=== PATIENT | male | born 1965 | race Caucasian/White ===

== ENCOUNTER → 2020-03-10 | Outpatient (CLI) | payer OTHER ==
[~2020-03-10] MED LIST: OXYC1TAB19 PO; SILD50TA PO; TAMS0.4C97 PO
== END ==
LOC: LAB 13:29
PROVIDERS: ATTEND Orthopaedic Surgery
DX: Z01.812 Encounter for preprocedural laboratory examination (principal); Z20.828 Contact with and (suspected) exposure to other viral communicable diseases
CPT/HCPCS: U0003

== ENCOUNTER 2020-03-14 06:51 | Day surgery (SDC) | payer OTHER ==
[~2020-03-14] VITALS: Ht 188 cm; Wt 106.0 kg
[~2020-03-14 06:51] MED LIST changes: -OXYC1TAB19 PO
[2020-03-14] MEDS ORDERED: MORPHINE SULFATE 2 MG/ML VIAL. IV PRN (07:00)
[2020-03-14] MEDS ORDERED: HYDROmorphone 2 MG/ML VIAL IV PRN (07:00)
[2020-03-14] MEDS ORDERED: PROCHLORPERAZINE 10 MG/2 ML VIAL. IV PRN (07:00)
[2020-03-14] MEDS ORDERED: ONDANSETRON PF 4 MG/2 ML VIAL. IV PRN (07:00)
[2020-03-14] MEDS ORDERED: LIDOCAINE 1% PF 2 ML VIAL. ID PRN (07:00)
[2020-03-14] MEDS ORDERED: fentaNYL PF VIAL 100 MCG/2 ML VIAL IV PRN ×2 (07:00)
[2020-03-14] MEDS ORDERED: MIDAZOLAM HCL/PF 2 MG/2 ML VIAL. ONE (07:06)
[2020-03-14] MEDS ORDERED: ROPIVacaine 0.5% PF 20 ML VIAL. ONE (07:07)
[2020-03-14] MEDS ORDERED: EPINEPHrine VIAL 30 MG/30 ML VIAL ONE (07:10)
[2020-03-14] MEDS ORDERED: OXYC1TAB19 PO (07:16)
--- NOTE | 2020-03-14 07:18 | DISCH ---
DISCHARGE INSTRUCTIONS Condition on Discharge Condition on Discharge: Stable Activity After Discharge Activity Instructions for Disc: Other, see below (No lifting arm actively away from body, only passive range of motion helping with the other arm or with physical therapy or pendulum arm down at side) Lifting Instructions after Dis: No heavy lifting, No pulling or pushing Diet after Discharge Diet after Discharge: Regular Wound Incision Care Wound/Incision Care: Ice to area for comfort, Change dressing (Remove dressing in 2 days may then shower, call if any drainage persistent) Contacting the after DC Call your doctor for: Concerns you may have Follow-Up Follow up with: Dr. Roblero 10 days VALENCIA ROBLERO MD Mar 14, 2020 07:18
[2020-03-14] MEDS: IV RINGERS,LACTATED 1000ML 1,000 ML IV SCH ×2 (07:31→10:19)
[2020-03-14] MEDS ORDERED: SUCCINYLCHOLINE 200 MG/10 ML VIAL. ONE (07:39)
[2020-03-14] MEDS ORDERED: ROCURONIUM 50 MG/5 ML VIAL. ONE (07:39)
[2020-03-14] MEDS ORDERED: fentaNYL PF VIAL 100 MCG/2 ML VIAL ONE (07:39)
[2020-03-14] MEDS ORDERED: PROPOFOL 10 MG/ML (20ML) VIAL. IV ONE (07:39)
[2020-03-14] MEDS ORDERED: LIDOCAINE 2% PF 5 ML VIAL. ONE (07:39)
[2020-03-14 07:59] LABS: BASO % 1 % (0-3); EOS # 0.2 x10^3/uL (0.0-0.7); EOS % 3 % (0-3); HEMATOCRIT 45.5 % (39.0-53.0); HEMOGLOBIN 15.8 g/dL (13.0-17.5); LYMPH # 1.6 x10^3/uL (1.0-4.8); LYMPH % 27 % (24-48); MEAN CORPUSCULAR HEMOGLOBIN 30 pg (25-35); MEAN CORPUSCULAR HGB CONC 35 g/dL (31-37); MEAN CORPUSCULAR VOLUME 86 fL (79-100); MONO # 0.5 x10^3/uL (0.0-1.1); MONO % 9 % (0-9); NEUT # 3.7 x10^3/uL (1.8-7.7); NEUT % 61 % (31-73); PLATELET COUNT 277 x10^3/uL (140-400); RED BLOOD COUNT 5.27 x10^6/uL (4.30-5.70); RED CELL DISTRIBUTION WIDTH 13.2 % (11.5-14.5); WHITE BLOOD COUNT 6.1 x10^3/uL (4.0-11.0)
[2020-03-14 08:07] LABS: CALCIUM 8.6 mg/dL (8.5-10.1); CREATININE 1.3 mg/dL (0.7-1.3); GFR 57.3; POTASSIUM 3.9 mmol/L (3.5-5.1)
[2020-03-14] MEDS ORDERED: DESFLURANE 31 TO 60 MINUTES IH ONE (08:13)
[2020-03-14] MEDS ORDERED: ONDANSETRON PF 4 MG/2 ML VIAL. ONE (08:13)
[2020-03-14] MEDS ORDERED: DEXAMETHASONE SOD PHOS 4 MG/ML VIAL ONE (08:13)
--- NOTE | 2020-03-14 08:19 | HP ---
ADMIT DATE: 03/14/2020 CHIEF COMPLAINT: Left shoulder pain and weakness. HISTORY OF PRESENT ILLNESS: The patient is an active 54-year-old male who injured his shoulder when some gear was falling out of trunk of his car and he reached forward to grab it and it jerked his left arm down. He has since had sharp pain in the shoulder, particularly trying to do pushups, reaching up and away or across his body. He has done physical therapy for about 6 weeks without improvement and is particularly symptomatic doing close in pushups, but is able to do curls with his arm at the side when he reaches away from his body to lift, push or pull. He is very limited and painful. He is currently an army instructor on active duty and is used to doing physical training as a formal ranger and very limited in those activities. PAST MEDICAL HISTORY: He denies any significant past medical history. PAST SURGICAL HISTORY: Left knee arthroscopy in 11/2018, recovered very well from that and cholecystectomy in 2017. FAMILY HISTORY: Mother and father are alive and healthy. SOCIAL HISTORY: He does smoke cigarettes occasionally, alcohol once a week, denies any drug use. MEDICATIONS: Include Flomax and Viagra. ALLERGIES: INCLUDE PENICILLIN, CATs AND SHELLFISH. REVIEW OF SYSTEMS: Denies any recent illnesses. No focal weakness, numbness, tingling, chest pain, shortness of breath. PHYSICAL EXAMINATION: VITAL SIGNS: Per admission sheet. HEENT: Atraumatic, normocephalic. HEART: Regular rate and rhythm. LUNGS: Clear to auscultation bilaterally. ABDOMEN: Benign. EXTREMITIES: Examination of left shoulder reveals overall intact rotator cuff strength with no apprehension or instability. He has severe bicipital irritation signs with positive [place]'s and Tomas shear test. He is also very tender over the acromioclavicular joint on the left from both palpation and compression compared to the right. No instability of either acromioclavicular joint, nor is there any parascapular instability. He has normal examination of the right shoulder, bilateral elbows and wrists. IMAGING: MRI shows a SLAP tear of the left shoulder. IMPRESSION: Superior labrum anterior and posterior tear of left shoulder and arthrosis of the left acromioclavicular joint. TREATMENT PLAN: I previously discussed with him the possibility of a SLAP debridement versus repair, but more likely a biceps tenodesis, would plan on a distal clavicle excision as well, evaluating any other pathology including any rotator cuff pathology, which is not expected based on his exam or MRI results, I went over the expected restrictions for him postoperatively and he wishes to proceed with surgical evaluation and treatment, after reviewing risks of possible nonhealing, infection, nerve or blood vessel damage, stiffness, continued pain, medical or other anesthetic complications among others. VALENCIA STEVE MD DR: ESTRELLITA/ti JOB#: [id number] / [id number]
[2020-03-14] MEDS ORDERED: NEOSTIGMINE METHYLSULFATE 5 MG/5 ML SYRINGE. ONE (08:50)
[2020-03-14] MEDS ORDERED: GLYCOPYRROLATE 1 MG/5 ML VIAL. ONE (08:50)
[2020-03-14] MEDS ORDERED: oxyCODONE/APAP 7.5/325 1 TAB TABLET PO ONE (10:15)
[2020-03-14 12:04] VITALS: BP 139/78
--- NOTE | 2020-03-14 15:19 | PDOC4 ---
Operative Note Operative Note Date of surgery: 03/14/2020 Preoperative diagnosis: SLAP tear left shoulder and painful degenerative acromioclavicular joint Postoperative diagnosis: Same with significant compromise of biceps anchor large loose labral fragment Operative procedure: Left shoulder arthroscopy, biceps tenodesis, extensive labral debridement and distal clavicle excision Surgeon: Annika [employer] Installer: Jj ayoub assist Anesthesia: General plus scalene block Estimated blood loss: 20 cc Complications: None Operative indications: Please see my orthopedic clinic note and today's dictated history and physical for detailed operative indications and note that we had covered the likely biceps tenodesis treatment of the labrum and any other pathology including the degenerative acromioclavicular joint that remains painful. We talked about the possibility of continued pain stiffness weakness nonhealing infection nerve or blood vessel damage medical or other anesthetic complications among others. He agrees to proceed with surgical evaluation and treatment Operative text: Patient was identified procedure verified patient placed in the supine position on the operating table. After adequate amounts of general anesthesia plus a pre-existing scalene block were obtained he was placed in the decubitus position left side up all bony prominences were well-padded and the shoulder was examined under anesthesia found to have full range of motion and no instability. The shoulder was then prepped and draped in the standard sterile fashion and placed in the arthroscopic arm del angel with a total of 10 pounds of traction. After timeout was performed patient procedure identified and verified a standard posterior portal was established an anterior portal established using spinal needle localization and the shoulder joint was systematically examined. Rotator cuff insertion including the subscapularis and the bare area of the humerus were noted to be normal. Glenohumeral cartilage was generally well preserved. He did have a large flap of free impinging labral tissue which was trimmed back to stable tissue with the arthroscopic shaver. However there was clear separation of the superior labrum from the glenoid and disruption of the biceps anchor. Biceps tendon was tagged and released and labrum was extensively debrided. Capsuloligamentous structures were otherwise noted to be in satisfactory condition. Subacromial space was then entered and bursa was cleared anterior acromial spur was trimmed back to a type I acromion using cutting block technique distal clavicle was excised 1 cm to allow an adequate spacing and surrounding joint capsule was preserved for stability. Bony fragments were evacuated with the arthroscopic shaver. Biceps tendon was located in the bicipital groove and a [employer]omet juggernaut double loaded max braid all suture anchor was placed through the anterior portal after preparation in the bicipital groove and used to tenodese the biceps after proper tensioning. Excess was trimmed and portals were closed with buried Vicryl suture skin closure with nylon suture sterile dressings were applied and patient was returned to recovery room in stable condition having tolerated procedure well. Jj hooker was present for the procedure and assisted in patient positioning prepping draping retraction closure and dressings VALENCIA STEVE MD Mar 14, 2020 15:19
== END 2020-03-14 12:10 | disposition home or self-care (01) ==
LOC: SURG 06:51 → EDUNIT# 07:30 → SURG 12:10
PROVIDERS: ATTEND Orthopaedic Surgery
DX: S43.432A Superior glenoid labrum lesion of left shoulder, initial encounter (principal); M19.012 Primary osteoarthritis, left shoulder; K21.9 Gastro-esophageal reflux disease without esophagitis; G47.30 Sleep apnea, unspecified; Z79.899 Other long term (current) drug therapy; Z98.890 Other specified postprocedural states; Z72.89 Other problems related to lifestyle; X58.XXXA Exposure to other specified factors, initial encounter; Y93.89 Activity, other specified; Y92.89 Other specified places as the place of occurrence of the external cause; Y99.8 Other external cause status
CPT/HCPCS: 29824; 29828; 36415; 64415; 80048; 85025; A4565; C1713; J0171; J0330; J0690; J1100; J2250; J2405; J2704; J2710; J2795; J3010; J3490; J7120; C1880